=== PATIENT | male | born 1985 | race Caucasian/White ===

== ENCOUNTER 2016-11-20 01:29 | Emergency (ER) | payer SELFPAY ==
--- NOTE | 2016-11-20 01:46 | C.PDOC ---
History Of Present Illness Patient is brought to the ED by police for acute alcohol intoxication. Patient admits to drinking alcohol today. He denies suicidal ideation, homicidal ideation, or any other complaints. Time Seen by Provider: 11/20/16 01:45 Chief Complaint (Nursing): Substance Abuse History Per: Patient, Other (police) History/Exam Limitations: intoxication Onset/Duration Of Symptoms: Other Current Symptoms Are (Timing): Still Present Suicide/Self Injury Attempted (Context): None Modifying Factor(s): Alcohol Severity: None Pain Scale Rating Of: 0 Involuntary Hold By: Local Law Enforcement Recent travel outside of the [place]: No Past Medical History Reviewed: Historical Data, Nursing Documentation, Vital Signs Vital Signs: Last Vital Signs Temp 97.6 F 11/20/16 01:36 Pulse 80 11/20/16 01:36 Resp 16 11/20/16 01:36 BP 110/68 11/20/16 01:36 Pulse Ox 98 11/20/16 03:37 Family History: States: Unknown Family Hx - Social History Hx Alcohol Use: Yes Hx Substance Use: Yes - Immunization History Hx Tetanus Toxoid Vaccination: No Hx Influenza Vaccination: No Hx Pneumococcal Vaccination: No Review Of Systems Constitutional: Positive for: Other (intoxication) Psych: Negative for: Suicidal ideation, Other (homicidal ideation) Physical Exam - Physical Exam Appears: Other (intoxicated) Skin: Warm, Dry Head: Atraumatic, Normacephalic Neck: Supple Chest: Symmetrical Cardiovascular: Rhythm Regular Respiratory: No Rales, No Rhonchi, No Wheezing Back: No CVA Tenderness Extremity: Bilateral: Atraumatic Neurological/Psych: Oriented x3 ED Course And Treatment O2 Sat by Pulse Oximetry: 98 (room air) Pulse Ox Interpretation: Normal Reevaluation Time: 05:09 Reassessment Condition: Improved ED OBSERVATION Discharge: Yes Date of observation admission: 11/20/16 Time of observation admission: 02:34 - Observation admission statement Patient is being placed in observation because:: acute alcohol intoxication - Goals of Observation Goals of observation are:: sobriety - Progress Note Progress Note: 11/20/16 02:34 vitals stable 11/20/16 05:09 arousable Disposition Counseled Patient/Family Regarding: Studies Performed, Diagnosis, Need For Followup - Disposition Referrals: [facility] [Outside] Disposition: HOME/ ROUTINE Disposition Time: 01:46 Condition: FAIR Instructions: Alcohol Intoxication (DC) - Clinical Impression Clinical Impression: Alcohol intoxication - Scribe Statement The provider has reviewed the documentation as recorded by the Scribe Sanam Blankenship Provider Attestation: All medical record entries made by the Scribe were at my direction and personally dictated by me. I have reviewed the chart and agree that the record accurately reflects my personal performance of the history, physical exam, medical decision making, and the department course for this patient. I have also personally directed, reviewed, and agree with the discharge instructions and disposition. Decision To Admit - . Patient Diagnosis: Alcohol intoxication
[2016-11-20 05:41] VITALS: BP 110/70; PULSE 78; RESP 14; TEMP 97.4; O2SAT 97
== END 2016-11-20 05:41 | disposition home or self-care (01) ==
LOC: C.ER 01:29
DX: F10.129 Alcohol abuse with intoxication, unspecified (principal); Y90.9 Presence of alcohol in blood, level not specified